=== PATIENT | female | born 1945 | race Caucasian/White ===

== ENCOUNTER 2018-12-21 08:43 | Day surgery (SDC) | payer OTHER | END 2018-12-21 12:10 | disposition home or self-care (01) | LOC: FASU 08:43 ==

== ENCOUNTER → 2019-01-04 | Day surgery (SDC) | payer OTHER ==
[2019-01-03 10:21] VITALS: BMI 25.8
[~2019-01-04] MED LIST: ACETAMINOPHEN 325 MG TABLET (FP) PO PRN; ACETYLCHOLINE 1:100 INTRA-OCUL 20 MG/2 ML KIT ONE; BACITRACIN/POLYMYXIN OPH OINT 3.5 GM TUBE ONE; BETAXOLOL HCL 0.25% OPHTHALMIC 10 ML DROPSBTL ONE; BSS (NA/CA/MG/K) BALANCED SALT SOLUTION OPHTH SOLN 15 ML BOTTLE ONE; EPI-SHUGARCAINE (EPINEPHRINE 0.025% & LIDOCAINE-PF 0.75%) 4ML ONE; EPINEPHrine/PF 1 MG/1 ML (1:1,000) AMPULE ONE; LACTATED RINGERS SOLUTION 1,000 ML IV SCH; MIDAZOLAM HCL 2 MG/2 ML SINGLE DOSE VIAL ONE; NEO/POLYMYX B SULF/DEXAMETH OPHTHALMIC 5ML BOTTLE ONE; ONDANSETRON 4 MG/2 ML VIAL IVPUSH PRN; POVIDONE-IODINE 5% OPHTHALMIC PREP 30 ML SOLUTION ONE; TETRACAINE 0.5% OPHTH SOLN 2 ML BOTTLE ONE; TROPICAMIDE 1% OPHTH SOLN 15 ML BOTTLE ONE
[2019-01-04] MEDS: PHENYLEPHRINE 2.5% OPHTH SOLN 15 ML BOTTLE OD SCH ×5 (06:45→07:05)
[2019-01-04] MEDS: OFLOXACIN 0.3% OPHTHALMIC SOLUTION 5 ML BOTTLE OD SCH ×5 (06:45→07:05)
[2019-01-04] MEDS: KETOROLAC TROMETHAMINE 0.5% EYE DROP 1 DROP DROPS OD SCH ×5 (06:45→07:05)
[2019-01-04] MEDS: TROPICAMIDE 1% OPHTH SOLN 15 ML BOTTLE OD SCH ×5 (06:45→07:05)
[2019-01-04] MEDS: CYCLOPENTOLATE HCL 1% OPHTH SOLN 2 ML BOTTLE OD SCH ×5 (06:45→07:05)
[2019-01-04 09:16] VITALS: TEMP 98.2
[2019-01-04 09:21] VITALS: BP 153/52; PULSE 64
--- NOTE | 2019-01-04 09:54 | OP ---
DATE OF OPERATION: 01/04/2019 PREOPERATIVE DIAGNOSIS: Cataract, right eye. PROCEDURE: Cataract extraction via phacoemulsification with insertion of posterior chamber lens implant, right eye, toric lens. SURGEON: Irwin Mathew MD BAND SAWYER: Yadira Geiger MD ANESTHESIA: Topical with sedation. ESTIMATED BLOOD LOSS: Less than 1 mL. COMPLICATIONS: None. SPECIMEN: None. DESCRIPTION OF PROCEDURE: The patient is identified in the holding area. After all risks, benefits, and alternatives were explained to the patient, informed consent was obtained. The right eye was marked with a marking pen. The patient then entered the operating room on an eye stretcher. After formal timeout was performed, topical tetracaine eye drops were instilled onto the right eye. The patient was then instructed to sit up and look straight ahead, and the cardinal axes of astigmatism were marked onto the cornea using a toric bubble marker and a toric marking pen. The patient was asked to lay back down, and the right eye was prepped and draped in the usual sterile fashion. An eyelid speculum was placed beneath the eyelid of the right eye. Then, the axis of astigmatism was measured and marked onto the cornea, which was noted to be 170 degrees. We used a toric dial and a toric marking pen to tyrese the axis. Then a superotemporal incision was created using a 15-degree blade. Topical preservative-free epinephrine and preservative-free lidocaine were then injected into the anterior chamber. Viscoelastic was injected into the anterior chamber. A 2.4-mm keratome blade was then used to make an inferotemporal incision. A 360-degree continuous curvilinear capsulorrhexis was then created using bent cystotome and Utrata forceps. Hydrodissection was performed using balanced salt solution on a cannula. Phacoemulsification was introduced to disassemble and remove the nucleus in its entirety. Irrigation/aspiration was then used to remove any cortical material from the eye. The capsular bag was re-formed using viscoelastic. An Kevin model [id number] with a power of 23.5 diopters, serial number [id number] was inspected and found to be defect-free and injected into the capsular bag. Irrigation/aspiration was then used to remove any remaining viscoelastic, especially posterior to the optic. Then intracameral injection of Miochol was then administered and pupil came down, was round. The intraocular lens was rotated so that axis of astigmatism on the optic matched the axis of astigmatism on the cornea, which was noted to be 170 degrees. Once it was perfectly placed, some more Miochol was then administered and pupil came down fully. After final round of irrigation and aspiration was then performed, the lens was then confirmed to be in its same spot at 170 degrees, and all wounds were hydrated with balanced salt solution, noted to be watertight. The anterior chamber was deep. The lens was perfectly centered in the capsular bag with the axis of astigmatism at 170 degrees. They eye had adequate pressure, and there was a red reflex present. Topical antibiotic eye drops and ointment were then administered to the right eye. The eyelid speculum was removed from the right eye. The right eye was shielded. The patient tolerated the procedure well, left the operating room in stable condition to follow up in the eye clinic tomorrow morning at 10:00. IRWIN MATHEW M.D. [id number]
== END | disposition home or self-care (01) ==
LOC: FASU 06:10
PROVIDERS: ATTEND Ophthalmology
PROC: 08RJ3JZ Replacement of Right Lens with Synthetic Substitute, Percutaneous Approach (ICD-10-PCS; principal; 2019-01-04 07:40)
DX: H26.9 Unspecified cataract (principal)
CPT/HCPCS: 82962